=== PATIENT | male | born 1935 | race Two or more races ===

== ENCOUNTER 2019-05-01 16:17 | Emergency (ER) | payer MEDICARE, MEDICAID ==
[~2019-05-01] VITALS: Ht 175.3 cm; Wt 58.5 kg
[2019-05-01 16:31] VITALS: BP 115/84
[2019-05-01] MEDS ORDERED: POLY17PO4 PO (16:44)
[2019-05-01] MEDS ORDERED: BISA10SU61 RC (16:44)
[2019-05-01] MEDS ORDERED: SENN8.8S12 GT (16:44)
[2019-05-01] MEDS ORDERED: OLAN7.5T3 PO (16:44)
[2019-05-01] MEDS ORDERED: MERO500V3 IV (16:44)
[2019-05-01] MEDS ORDERED: IPRA3AMP23 IH (16:44)
[2019-05-01] MEDS ORDERED: ACET-868 GT (16:44)
[2019-05-01] MEDS ORDERED: LACT-96 GT (16:44)
[2019-05-01] MEDS ORDERED: TERA2CAP4 PO (16:44)
[2019-05-01] MEDS ORDERED: ACET-73 PO (16:44)
[2019-05-01] MEDS ORDERED: LORA-259 PO (16:44)
[2019-05-01] MEDS ORDERED: MAGN400O6 GT (16:44)
[2019-05-01] MEDS ORDERED: DOCU-141 PO (16:44)
[2019-05-01] MEDS ORDERED: NA P133E RC (16:44)
[2019-05-01] MEDS ORDERED: DIATR MEGLU/DIATRIZOATE SODIUM 30 ML BOTTLE (GASTROGRAPHIN) ONE (16:57)
--- NOTE | 2019-05-01 17:00 | NUR ---
RADIOLOGY AT BEDSIDE FOR ABDOMINAL KUB FOR G TUBE PLACEMENT
--- NOTE | 2019-05-01 17:50 | NUR ---
YURI BUNCH 193 TRIP#[id number]
--- NOTE | 2019-05-01 19:53 | NUR ---
*ETA IS ORIGINALLY 2030
--- NOTE | 2019-05-01 21:02 | NUR ---
UPDATED ETA 10 MINUTES
--- NOTE | 2019-05-01 21:30 | NUR ---
G TUBE DRESSING CHANGE DONE
== END 2019-05-01 22:33 | disposition home or self-care (01) ==
LOC: ER 16:19
DX: K94.20 Gastrostomy complication, unspecified (principal); Z79.899 Other long term (current) drug therapy
CPT/HCPCS: 74018; 99283; Q9963